=== PATIENT | female | born 1980 | race Caucasian/White ===

== ENCOUNTER 2016-12-17 07:45 | Inpatient (IN) | payer OTHER ==
[~2016-12-17] VITALS: Ht 154.9 cm; Wt 57.7 kg
[~2016-12-17 07:45] MED LIST: PRENAT PO
[2016-12-17] MEDS ORDERED: LACTATED RINGER'S 1,000 ML IV SCH (07:49)
[2016-12-17] MEDS ORDERED: AMPICILLIN 2 GM/NS (PMX) 100 ML ONE (07:54)
[2016-12-17] MEDS ORDERED: BUTORPHANOL 2 MG INJ ONE (07:58)
[2016-12-17] MEDS ORDERED: MISOPROSTOL 200 MCG TAB PR PRN ×2 (08:00→09:30)
[2016-12-17] MEDS ORDERED: OXYTOCIN 30 UNITS/LR 500 ML IV SCH ×2 (08:00)
[2016-12-17] MEDS ORDERED: LIDOCAINE 1% (MPF) 30 ML INJ INJ PRN (08:00)
[2016-12-17] MEDS ORDERED: AMPICILLIN 2 GM/NS (PMX) 100 ML IV ONE (08:00)
[2016-12-17] MEDS ORDERED: OXYTOCIN 30 UNITS/LR 500 ML IV PRN ×2 (08:00→09:30)
[2016-12-17] MEDS ORDERED: IBUPROFEN 600 MG TAB PO PRN (08:00)
[2016-12-17] MEDS ORDERED: METHYLERGONOVINE 0.2 MG INJ IM PRN ×2 (08:00→09:30)
[2016-12-17] MEDS ORDERED: CARBOPROST 250 MCG INJ IM PRN ×2 (08:00→09:30)
[2016-12-17] MEDS ORDERED: LACTATED RINGER'S 1,000 ML IV PRN (08:00)
[2016-12-17 08:03] VITALS: BP 122/83; PULSE 112; RESP 18
[2016-12-17 08:06] VITALS: Ht 154.9 cm; Wt 57.7 kg
[2016-12-17 08:13] LABS: ADD SCAN DIFF NO
[2016-12-17 08:21] LABS: BASOPHILS % 0.2 % (0.0-2.0); EOSINOPHILS % 0.2 % (0.0-7.0); HEMATOCRIT 31.8 % (37.0-47.0); HEMOGLOBIN 10.7 g/dl (12.0-16.0); LYMPHOCYTES # 1.8 10^3/ul (0.8-2.9); LYMPHOCYTES % 16.2 % (15.0-51.0); MEAN CORPUSCULAR HEMOGLOBIN 26.5 pg (29.0-33.0); MEAN CORPUSCULAR HGB CONC 33.6 g/dl (32.0-37.0); MEAN CORPUSCULAR VOLUME 78.7 fl (82.0-101.0); MEAN PLATELET VOLUME 9.8 fl (7.4-10.4); MONOCYTES % 8.5 % (0.0-11.0); NEUTROPHIL # 8.4 10^3/ul (1.6-7.5); NEUTROPHILS % 74.4 % (39.0-77.0); PLATELET COUNT 350 10^3/UL (140-415); RED BLOOD COUNT 4.04 10^6/ul (4.20-5.40); RED CELL DISTRIBUTION WIDTH 14.8 % (11.5-14.5); WHITE BLOOD COUNT 11.2 10^3/ul (4.8-10.8)
[2016-12-17] MEDS ORDERED: BUTORPHANOL 2 MG INJ IV ONE (08:30)
[2016-12-17 08:40] LABS: INR 0.85; PROTIME 11.6 Sec (12.2-14.2); PT RATIO 0.9
[2016-12-17 08:41] LABS: PARTIAL THROMBOPLASTIN TIME 26.8 Sec (25.0-35.0)
--- NOTE | 2016-12-17 09:03 | TRIAGE ---
OB Triage Datetime Report Generated by CPN: 12/17/2016 09:03 Datetime: 12/17/2016 08:26 Stage of : Labor Labor Evaluation Frequency: 1-2 Monitor Mode: External Duration (sec)2399: 30-60 Pattern: Normal: <= 5 Contractions in 10 Minutes Resting Tone [place]: Relaxed Heart Rate FHR Baseline Rate: 155 Monitor Mode: External US Variability: Moderate 6-25 bpm Accelerations: 15X15 Decelerations: None Category: Category I Pain Assessment Pain Scale: 8 Pain Presence: Intermittent Pain Type: Contraction Pain Location: Abdomen Pain Goal: 0 Pain Relief Measures: Comfort Measures Datetime: 12/17/2016 08:09 Time of Arrival: 12/17/2016 07:30 EGA: 36.1 Arrived By: Ambulance Arrived From: Home Chief Complaint: UC'S SINCE 0500 Movement: Present Contractions: Regular Time Contractions Began: 12/17/2016 05:00 Rupture of Membranes: Denies Vaginal Bleeding: None Vaginal Discharge: Denies Recent Sexual Intercouse: Denies Abdominal Trauma: Not Applicable Patient Complaints: Contractions; Cramping Time Provider Notified: 12/17/2016 07:50 Provider Notified: DR PFEIFFER Initial Plan: NST, VE Datetime: 12/17/2016 08:02 Assessment Type: Admission Assessment Vaginal Bleeding: None Maternal Assessment Level of Consciousness: Fully Conscious DTR's/Clonus: DTRs 2+; No Clonus Headache: Denies Blurred Vision: No Respiratory Effort: Unlabored; Regular Rhythm; Equal Expansion Breath Sounds, Left: Clear and Equal Breath Sounds, Right: Clear and Equal Nausea/Vomiting: Denies RUQ Epigastric Pain: Denies Lower Extremities Edema: None Degree: None Upper Extremities Edema: None Degree: None Facial Edema: None Fall Risk Assessment History of Falling: (0) No Secondary Diagnosis: (0) No Ambulatory Aid: (0) Bedrest/Nurse Assist IV Therapy: (0) No Gait: (0) Normal/Bedrest/Immobile Mental Status: (0) Oriented to Own Ability Fall Score: 0 Fall Risk Score Definition: No Risk: No action required Labor Evaluation Frequency: 1-3 Duration (sec)2399: 30-60 Pattern: Normal: <= 5 Contractions in 10 Minutes Resting Tone [place]: Relaxed Heart Rate FHR Baseline Rate: 155 Variability: Moderate 6-25 bpm Accelerations: 15X15 Decelerations: None Category: Category I Pain Assessment Pain Scale: 9 Pain Presence: Intermittent Pain Type: Contraction Pain Location: Abdomen Pain Goal: 0 Vaginal Exam Dilatation (cms): 10.0 Effacement (%): 100 Station: -1 Membrane Status: Bulging Datetime: 12/17/2016 08:01 Arrived By: Stretcher Arrived From: Home Datetime: 12/17/2016 07:45 Assessment Type: Admission Assessment Maternal Assessment Level of Consciousness: Fully Conscious DTR's/Clonus: DTRs 2+; No Clonus Headache: Denies Blurred Vision: No Respiratory Effort: Unlabored; Regular Rhythm; Equal Expansion Breath Sounds, Left: Clear and Equal Breath Sounds, Right: Clear and Equal Nausea/Vomiting: Denies RUQ Epigastric Pain: Denies Lower Extremities Edema: None Degree: None Upper Extremities Edema: None Degree: None Facial Edema: None Fall Risk Assessment History of Falling: (0) No Secondary Diagnosis: (0) No Ambulatory Aid: (0) Bedrest/Nurse Assist IV Therapy: (0) No Gait: (0) Normal/Bedrest/Immobile Mental Status: (0) Oriented to Own Ability Fall Score: 0 Fall Risk Score Definition: No Risk: No action required
[2016-12-17] MEDS: LACTATED RINGER'S 1,000 ML IV* SCH (09:21)
--- NOTE | 2016-12-17 09:26 | LDN ---
Date/Time of Note Date/Time of Note DATE: 12/17/16 TIME: 09:24 Delivery Summary of a viable baby boy weighing 2275 grams, or 5#, 19" long, and with Apgars of 9/9. Weeks of Gestation 36w 1d Placenta Delivered: Spontaneously Meconium: none Episiotomy: No Perineal laceration: 0 Anesthesia type: None Estimated blood loss: 200 Sponge & Needle done & correct: Yes All needle counts correct: Yes Any foreign bodies felt in the: No (vagina) Problems: Infant Delivery Information Sex Sex: male Apgars 1 Minute: 9 5 Minute: 9 Suctioning Nose & mouth suctioned at romaine: No Delee suction performed: No Umbilical Cord Umbilical cord with: 3 Vessels Cord presentations: no nuchal cord Cord Blood was obtained: Yes Mother & Baby Disposition Disposition Mom & Baby to Maternity; Good: Yes Baby to NICU: No SKY PFEIFFER MD Dec 17, 2016 09:26
[2016-12-17] MEDS ORDERED: OXYCODONE/ASPIRIN (4.88/325) TAB PO PRN (09:30)
[2016-12-17] MEDS ORDERED: LANOLIN 7 GM TUBE TOP PRN (09:30)
--- NOTE | 2016-12-17 09:31 | HP ---
Date/Time of Note Date/Time of Note DATE: 12/17/16 TIME: 09:26 OB - History Hx of Present Free Text/Dictation 36 y.o. , ER panel pt, with an IUP at 36w 1d came in active labor, completely dilated with an intact bag. Chief Complaint: Labor Estimated Due Date: Jan 13, 2017 : 4 Para: 3 Care: Good Care Ultrasounds: Other (Prenatals not available but per pt all was normal.) Obstetrical Complications: None Medical Complications: None Past Family/Social History * Past Medical, Surgical, Family and Obstetric Histories reviewed with patient as her records were not available. Blood Type: Unknown Rubella: unknown RPR/VDRL: Unknown GBS Status: Unknown HBsAG: Unknown OB Admission Exam Vital Signs Vital Signs Vital Signs Date Time Temp Pulse Resp B/P Pulse Ox O2 Delivery O2 Flow Rate FiO2 12/17/16 08:03 98.7 112 18 122/83 Room Air Physical Exam Heart: Rhythm Normal Lungs: Clear Abdomen: WNL Extremities: Normal Reflexes: Normal Cervical Dilatation: 10cm Effacement: 100% Station: +1 Membranes: Intact Amniotic Fluid: Clear Heart Rate: 150's Accelerations: Accelerations Present Decelerations: No Decelerations Contractions on Admission: < 5 Minutes Apart Last 72 hours Lab Results CBC & BMP 12/17/16 07:51 OB Assessment/Plan Reason for admission: active labor, labor Plan: Expectant Management SKY PFEIFFER MD Dec 17, 2016 09:31
[2016-12-17] MEDS: OXYTOCIN 30 UNITS/LR 500 ML IV SCH ×2 (09:43→15:29)
[2016-12-17 11:40] VITALS: BP 127/75; PULSE 80; RESP 20
[2016-12-17] MEDS ORDERED: AMPICILLIN 1 GM/NS (PMX) 50 ML IV SCH (12:00)
[2016-12-17 12:02] LABS: BARBITURATES Negative (NEGATIVE); BENZODIAZEPINES Negative (NEGATIVE); CANNABINOIDS Negative (NEGATIVE); COCAINE Negative (NEGATIVE); OPIATES Negative (NEGATIVE)
[2016-12-17] MEDS: IBUPROFEN 600 MG TAB PO SCH (15:30)
[2016-12-17 16:05] VITALS: BP 109/64; PULSE 100; RESP 20
[2016-12-18] MEDS: IBUPROFEN 600 MG TAB PO SCH ×5 (01:03→18:00)
[2016-12-18 07:30] VITALS: BP 89/63; PULSE 95; RESP 16
[2016-12-18 08:22] LABS: ADD SCAN DIFF NO
[2016-12-18 08:38] LABS: BASOPHILS % 0.3 % (0.0-2.0); EOSINOPHILS # 0.1 10^3/ul (0.0-0.5); EOSINOPHILS % 0.9 % (0.0-7.0); HEMOGLOBIN 8.9 g/dl (12.0-16.0); LYMPHOCYTES # 2.9 10^3/ul (0.8-2.9); MEAN CORPUSCULAR HEMOGLOBIN 25.8 pg (29.0-33.0); MEAN CORPUSCULAR HGB CONC 31.8 g/dl (32.0-37.0); MEAN CORPUSCULAR VOLUME 81.2 fl (82.0-101.0); MEAN PLATELET VOLUME 9.9 fl (7.4-10.4); MONOCYTE # 0.6 10^3/ul (0.3-0.9); NEUTROPHIL # 5.7 10^3/ul (1.6-7.5); NEUTROPHILS % 61.2 % (39.0-77.0); PLATELET COUNT 305 10^3/UL (140-415); RED BLOOD COUNT 3.45 10^6/ul (4.20-5.40); RED CELL DISTRIBUTION WIDTH 14.9 % (11.5-14.5); WHITE BLOOD COUNT 9.3 10^3/ul (4.8-10.8)
[2016-12-18] MEDS: LACTATED RINGER'S 1,000 ML IV* SCH ×2 (12:56→12:57)
--- NOTE | 2016-12-18 14:30 | QN ---
Documentation Comment ppd1 pt doing well vss exam wnl a/p ppd2 continue care MAGDIEL RENTERIA MD Dec 18, 2016 14:30
[2016-12-18 15:55] VITALS: BP 96/64; PULSE 75; RESP 18
[2016-12-18 19:30] VITALS: BP 91/54; PULSE 88; RESP 18
[2016-12-19] MEDS: IBUPROFEN 600 MG TAB PO SCH ×3 (00:03→11:27)
[2016-12-19] MEDS: LACTATED RINGER'S 1,000 ML IV* SCH ×2 (01:21→09:21)
[2016-12-19 04:00] VITALS: BP 105/62; RESP 18
[2016-12-19 07:30] VITALS: BP 101/60; PULSE 82; RESP 19
[2016-12-19] MEDS ORDERED: DIPHTH/TET/ACEL PERTUSS (ADULT) 0.5 ML VIAL IM* ONE (09:00)
--- NOTE | 2016-12-19 09:36 | DS ---
Date/Time of Note Date/Time of Note DATE: 12/19/16 TIME: 09:32 Obstetrical Discharge Record Final Diagnosis Final Diagnosis: Term delivered Vaginal Delivery Obstetrical Delivery: Spontaneous Condition on Discharge Physical Assessment Last Vitals: Current Medications Medications (Trade) Dose Ordered Sig/Homero Route PRN Reason Start Time Stop Time Status Last Admin Dose Admin Lactated Ringer's 1,000 ml @ 125 mls/hr Q8H IV 12/17/16 07:49 12/17/16 09:24 DC 12/17/16 08:15 Ampicillin 100 ml @ 100 mls/hr ONCE ONCE IV 12/17/16 08:00 12/17/16 08:59 DC 12/17/16 08:15 Ampicillin (Ampicillin 1 Gm/ NS (Pmx)) 50 ml @ 100 mls/hr Q4H IV 12/17/16 12:00 12/17/16 12:00 DC Lidocaine 30 ml 30 ml ONCE PRN INJ EPISIOTOMY/TEARING 12/17/16 08:00 12/17/16 09:24 DC Oxytocin/Lactated Ringer's 500 ml @ 125 mls/hr ONCE -MAY REPEAT X1 IV 12/17/16 08:00 12/17/16 09:24 DC 12/17/16 09:23 Oxytocin/Lactated Ringer's 500 ml @ 125 mls/hr ONCE IV 12/17/16 08:00 12/17/16 09:24 DC Ibuprofen 600 mg 600 mg ONCE PRN PO Mild Pain (Pain Score 1-3) 12/17/16 08:00 12/17/16 09:24 DC Lactated Ringer's 1,000 ml @ 2,000 mls/hr Q30M PRN IV PRE-EPIDURAL BOLUS 12/17/16 08:00 12/17/16 09:24 DC Oxytocin/Lactated Ringer's 500 ml @ 0 mls/hr ONCE PRN IV For Hemorrhage Management 12/17/16 08:00 12/17/16 09:24 DC Methylergonovine Maleate (Methergine) 0.2 mg ONCE PRN IM VAGINAL BLEEDING 12/17/16 08:00 12/17/16 09:24 DC Carboprost Tromethamine (Hemabate) 250 mcg ONCE PRN IM VAGINAL BLEEDING 12/17/16 08:00 12/17/16 09:24 DC Misoprostol 1000 mcg 1,000 mcg ONCE PRN ND VAGINAL BLEEDING 12/17/16 08:00 12/17/16 09:24 DC Ampicillin (Ampicillin 2 Gm/ NS (Pmx)) 100 ml @ ud STK-MED ONCE .ROUTE 12/17/16 07:54 12/17/16 07:55 DC Butorphanol Tartrate (Stadol) 2 mg STK-MED ONCE .ROUTE 12/17/16 07:58 12/17/16 07:59 DC Butorphanol Tartrate 1 mg 1 mg ONCE ONCE IV 12/17/16 08:30 12/17/16 08:31 DC 12/17/16 08:00 Oxytocin/Lactated Ringer's 500 ml @ 125 mls/hr Q4H IV 12/17/16 09:21 12/17/16 17:20 DC 12/17/16 15:29 Lactated Ringer's (Lr) 1,000 ml @ 125 mls/hr Q8H IV* 12/17/16 09:21 Ibuprofen (Motrin) 600 mg Q6 PO 12/17/16 12:00 12/19/16 06:06 Oxycodone/Aspirin (Percodan) 1 tab Q3H PRN PO PAIN LEVEL 1-5 12/17/16 09:30 Lanolin (Tpd-Q-Buwpos) 1 applic BEDSIDE MEDICATION PRN TOP BEDSIDE FOR ALEXEI TO NIPPLES 12/17/16 09:30 Diphtheria/ Tetanus/Acell Pertussis 0.5 ml 0.5 ml ONCE ONCE IM* 12/19/16 09:00 12/19/16 09:01 DC Oxytocin/Lactated Ringer's 500 ml @ 0 mls/hr ONCE PRN IV For Hemorrhage Management 12/17/16 09:30 Methylergonovine Maleate (Methergine) 0.2 mg ONCE PRN IM VAGINAL BLEEDING 12/17/16 09:30 Carboprost Tromethamine (Hemabate) 250 mcg ONCE PRN IM VAGINAL BLEEDING 12/17/16 09:30 Misoprostol (Cytotec) 1,000 mcg ONCE PRN ND VAGINAL BLEEDING 12/17/16 09:30 Voiding: Yes Bowel Movement: Yes Breast: Soft, non-tender Fundus: Firm Abdomen and Incision: Post day 1 Patient is doing well, Ambulatory She is afebrile Abdomen is soft , Fundus is firm Moderate amount of lochia Breasts are soft, Nipples are intact No calf tenderness. Perineum is intact Breast feeding the new born. Patient Condition: Good ANA KLEIN MD Dec 19, 2016 09:36
[2016-12-19 14:10] LABS: RUBELLA ANTIBODY - IGG 4.48 index
[2016-12-19 16:00] VITALS: BP 120/76; PULSE 88; RESP 19
== END 2016-12-19 17:30 | disposition home or self-care (01) | DRG 775 ==
LOC: OBT 07:45 → L-D 07:46 → PP1 11:22
PROVIDERS: ADMIT Obstetrics & Gynecology; ATTEND Obstetrics & Gynecology
PROC: 10E0XZZ Delivery of Products of Conception, External Approach (ICD-10-PCS; principal; 2016-12-17)
PROC: 4A1HX4Z Monitoring of Products of Conception, Cardiac Electrical Activity, External Approach (ICD-10-PCS; 2016-12-17)
DX: O60.14X0 Preterm labor third trimester with preterm delivery third trimester, not applicable or unspecified (principal); Z37.0 Single live birth; Z3A.36 36 weeks gestation of pregnancy
CPT/HCPCS: 80307; 85025; 85610; 85730; 86592; 86762; 86900; 86901; 87340; 90715; G0463; J0290; J0595; J2590; J7120